=== PATIENT | male | born 1995 | race Hispanic/Latino ===

== ENCOUNTER 2025-02-01 17:27 | Emergency (ER) | payer SELFPAY ==
[~2025-02-01] VITALS: Ht 188 cm; Wt 186.0 kg
[2025-02-01 17:38] VITALS: BP 158/85; PULSE 92; RESP 20; TEMP 99.4; O2SAT 99
--- NOTE | 2025-02-01 18:14 | ERN ---
ED Note History of Present Illness Stated Complaint: FINGER INJURY Chief Complaint: Finger Injury Time Seen by MD: 18:09 Dictation: PATIENT HERE WITH SUPERFICIAL ABRASIONS FROM A ARACELY NAIL TO THE RIGHT 3RD AND 4TH FINGERS PALMAR ASPECT1 HOUR PRIOR TO ARRIVAL. HE STATES HE WAS WORKING ON SOME CONSTRUCTION WHEN HE CUT HIMSELF. LAST TETANUS SHOT MORE 10 YEARS AGO NO ACTIVE BLEEDING NO REPAIRS REQUIRED. Allergies: Coded Allergies: No Known Allergies (Unverified Allergy, Unknown, 02/01/25) Past Medical History Past Medical History: No Pertinent History Surgical History: None RN Note Reviewed/Agreed w/PFSH: Yes Review of System Dictation CONSTITUTIONAL: NEGATIVE EXCEPT FOR HPI HEAD/FACE: NEGATIVE EXCEPT FOR HPI EENT: NEGATIVE EXCEPT FOR HPI RESPIRATORY: NEGATIVE EXCEPT FOR HPI GASTROINTESTINAL/ABDOMINAL: NEGATIVE EXCEPT FOR HPI GENITOURINARY: NEGATIVE EXCEPT FOR HPI MUSCULOSKELETAL: NEGATIVE EXCEPT FOR HPI INTEGUMENTARY: NEGATIVE EXCEPT FOR HPI SUPERFICIAL ABRASIONS TO RIGHT 3RD AND 4TH FINGERS NEUROLOGICAL/PSYCH: NEGATIVE EXCEPT FOR HPI HEMATOLOGIC/LYMPHATIC: NEGATIVE EXCEPT FOR HPI ALL SYSTEMS NEGATIVE, EXCEPT NOTED ABOVE. 13 POINT REVIEW OF SYSTEMS ASSESSED AND ALL NEGATIVE EXCEPT FOR ABOVE. Initial Vital Sign VS Vital Signs Date Time Temp Pulse Resp B/P (MAP) Pulse Ox O2 Delivery O2 Flow Rate FiO2 02/01/25 17:28 99.3 92 20 158/85 99 Room Air 02/01/25 17:38 0 21 Physical Exam Dictation VITAL SIGNS REVIEWED GENERAL APPEARANCE: ALERT, ORIENTED X 3, NO ACUTE DISTRESS, WELL DEVELOPED, NOURISHED. MORBID OBESITY HEAD AND FACE: NON-TRAUMATIC. EYES: PERRL, PINK CONJUNCTIVAS, EYELID NO TRAUMA, ANTERIOR CHAMBER WITH ARCUS SENILIS. EARS: PINNAS INTACT AND NO SIGNS OF TRAUMA OR ERYTHEMA EAR CANALS CLEAR AND NO DISCHARGE TM NO ERYTHEMA NOSE: NO DISCHARGE, NO BLEEDING. OROPHARYNX: MOUTH NORMAL, TONGUE PINK, PHARYNX CLEAR,NO ERYTHEMA, TONSILS NO EXUDATES, NO ABSCESSES NOTED, MUCOUS MEMBRANE MOIST NECK: SUPPLE, NON-TENDER, NO THYROMEGALY, NO MASSES, NO JVD, NO BRUITS BREAST:DEFERRED CHEST:NO TENDERNESS, NO CREPITUS, NO PARADOXICAL MOVEMENT, NO RETRACTIONS LUNGS:CLEAR, WELL-VENTILATED, SYMMETRIC, NO RALES, NO WHEEZING, NO RHONCHI, NO STRIDOR, GOOD BREATH SOUNDS BILATERALLY HEART: REGULAR RATE, REGULAR RHYTHM, NO MURMUR, NO GALLOPS VASCULAR: NO PERIPHERAL EDEMA, ABDOMEN: SOFT, POSITIVE BOWEL SOUNDS, NONDISTENDED, NO GUARDING, NONTENDER, NO REBOUND, NO MASSES NO HEPATOMEGALY, NO SPLENOMEGALY, NO WALDEN'S SIGN, NO HERNIAS. RECTAL: DEFERRED GENITAL: DEFERRED NEUROLOGICAL: NORMAL SPEECH, MOTOR FUNCTION INTACT, SENSORY FUNCTION INTACT MUSCULOSKELETAL: NECK NONTENDER, FULL RANGE OF MOTION, BACK NONTENDER, FULL RANGE OF MOTION, EXTREMITIES: NONTENDER, FULL RANGE OF MOTION SKIN: COLOR PINK, DRY, SUPERFICIAL ABRASIONS TO RIGHT 3RD AND 4TH PALMAR FINGERS MIDDLE PHALANX. NEUROVASCULAR CMS INTACT NO REPAIR REQUIRED LYMPHATIC: DEFERRED Results (Laboratory/Radiology) Labs Reviewed?: Yes ED Course ED Course Vital Signs Date Time Temp Pulse Resp B/P (MAP) Pulse Ox O2 Delivery O2 Flow Rate FiO2 02/01/25 17:38 99.3 92 20 158/85 99 Room Air* 0 21 02/01/25 17:28 99.3 92 20 158/85 99 Room Air Medical Decision Making MDM MEDICAL DISCHARGE MAKING BASED ON TETANUS UPDATE. PATIENT WAS DISCHARGED HOME WITH WOUND CARE INSTRUCTIONS TOLD TO FOLLOW UP OUTPATIENT WITH HIS DOCTOR NEEDED TYLENOL OR MOTRIN [id number] NEEDED FOR PAIN DX & DISP Disposition: Discharge Departure Impression: Primary Impression: Finger abrasion, non-infected Condition: Stable Additional Instructions: FOLLOW-UP WITH PRIMARY CARE PROVIDER IN 1 TO 2 DAYS. TAKE MEDICATIONS DIRECTED HERE IN THE EMERGENCY ROOM. OKAY TO CONTINUE HOME MEDICATIONS UNLESS OTHERWISE DISCUSSED DURING YOUR VISIT IN THE EMERGENCY ROOM TODAY. RETURN TO YOUR NEAREST EMERGENCY ROOM IF SYMPTOMS WORSEN OR IF THERE IS NO IMPROVEMENT. CALL 911 IF YOU NEED IMMEDIATE ASSISTANCE. TAKE TYLENOL OR MOTRIN [id number] NEEDED AND IF NO CONTRAINDICATIONS ARE PRESENT. INCREASE ORAL HYDRATION. A WOUND CULTURE OR URINE CULTURE WAS ORDERED HERE IN THE EMERGENCY ROOM DEPARTMENT PLEASE FOLLOW-UP WITH PRIMARY CARE PROVIDER AND ADVISE THEM TO GET REPEAT PORTS FROM OUR FACILITY. IF YOU HAD ANY NURIS WRAP/SPLINTS THAT WERE APPLIED HERE, PLEASE DO NOT REMOVE THEM UNTIL YOU SEE YOUR PRIMARY CARE OR SPECIALTY. WASH WOUNDS WITH SOAP AND WATER AND APPLY TRIPLE ANTIBIOTIC OINTME [id number] TIMES A DAY FOR FIVE DAYS WITH BAND-AID. SEE YOUR PRIMARY CARE DOCTOR FOR FOLLOW UP Referrals: NONE (PCP) Time of Disposition: 18:13 I have reviewed the case, and I agree with, Diagnosis and Plan CONSTANCE COTA NP Feb 01, 2025 18:14
[2025-02-01] MEDS: teTANUS/diphthERIA TOXOID [ADULT] 0.5 ML VIAL IM ONE (18:31)
== END 2025-02-01 18:36 | disposition home or self-care (01) ==
LOC: EDH 17:27
DX: S60.412A Abrasion of right middle finger, initial encounter (principal); S60.414A Abrasion of right ring finger, initial encounter; W45.8XXA Other foreign body or object entering through skin, initial encounter; Y93.89 Activity, other specified; Y92.89 Other specified places as the place of occurrence of the external cause; Y99.8 Other external cause status
CPT/HCPCS: 90471; 90714; 99283